=== PATIENT | female | born 1980 | race American Indian/Alaskan Native ===

== ENCOUNTER 2016-08-22 17:24 | Emergency (ER) | payer OTHER ==
--- NOTE | 2016-08-22 17:44 | Emergency Department Report ---
Chief Complaint: High BP Stated Complaint: HTN,LIGHTHEADNESS,PAIN IN LEGS Time Seen by Provider: 08/22/16 17:42 - HPI History of Present Illness: PT c/o feeling lightheaded since - ROS Review of Systems: + fatigue + htn - currently not being treated + hx of anemia, last cycle stopped - Exam Vital Signs: Vital Signs 08/22/16 17:36 Temperature 98.3 F Pulse Rate 83 Respiratory 18 Rate Blood Pressure 161/102 O2 Sat by Pulse 99 Oximetry MSE screening note: Focused history and physical exam performed. Due to findings the following was ordered: labs, ekg ED Disposition for MSE Condition: Stable
[2016-08-22 18:11] LABS: Basophils % (Auto) 1.1 % (0.0-1.8); Eosinophils % (Auto) 1.8 % (0.0-4.3); Hematocrit 36.1 % (30.3-42.9); Hemoglobin 11.8 gm/dl (10.1-14.3); Mean Corpuscular HGB Conc 33 % (30-34); Mean Corpuscular Volume 76 fl (79-97); Platelet Count 279 K/mm3 (140-440); Red Blood Count 4.73 M/mm3 (3.65-5.03); Red Cell Distribution Width 16.1 % (13.2-15.2); White Blood Count 7.6 K/mm3 (4.5-11.0)
[2016-08-22 18:12] LABS: Mean Corpuscular Hemoglobin 25 pg (28-32)
[2016-08-22 18:30] LABS: Alanine Aminotransferase 11 units/L (7-56); Albumin 3.5 g/dL (3.9-5); Albumin/Globulin Ratio 0.8 %; Alkaline Phosphatase 73 units/L (35-129); Anion Gap 19 mmol/L; Blood Urea Nitrogen 8 mg/dL (7-17); Calcium 8.7 mg/dL (8.4-10.2); Carbon Dioxide 24 mmol/L (22-30); Chloride 100.3 mmol/L (98-107); Glucose 102 mg/dL (65-100); Potassium 3.6 mmol/L (3.6-5.0); Sodium 140 mmol/L (137-145)
[2016-08-23] MEDS ORDERED: TYLENOL PO ONE (05:03)
[2016-08-23] MEDS ORDERED: TYLENOL ONE (05:03)
[2016-08-23 07:45] VITALS: BP 127/71
--- NOTE | 2016-08-23 08:27 | Emergency Department Report ---
HPI - General Chief Complaint: High BP Time Seen by Provider: 08/22/16 17:42 - HPI HPI: Room 25 The patient is a 36-year-old female presenting with a chief complaint of elevated blood pressure. The patient states she came to the emergency department for evaluation because she noticed blood pressure was elevated 5 days ago when she went to visit her neurologist. At the neurologist's office she was found to be 160/113. The patient was diagnosed with vertigo at the neurologist's office. The patient states yesterday at her [employer]'s office she felt to be hypertensive at 160/104. This prompted the patient to come to the ED for evaluation. The patient complained of aching pain in her left hip for the past 5 days. She denies any history of trauma or fever. The patient has been in the emergency department for over 14 hours when asked how she is feeling currently the patient denies any complaints. Location: [see above] Duration: [see above] Quality: Hypertension Severity: 160/113 Modifying factors: [see above] Context: [see above] Mode of transportation: [not driving] ED Past Medical Hx - Past Medical History Previous Medical History?: Yes Hx Hypertension: Yes (?) Additional medical history: Head injury while on a job - Surgical History Past Surgical History?: Yes Hx Cholecystectomy: Yes Hx Breast Surgery: Yes Additional Surgical History: Breast reduction - Family History Family history: no significant - Social History Smoking Status: Never Smoker Substance Use Type: None (denies illicit drug use), Prescribed - Medications Home Medications: Home Medications Medication Instructions Recorded Confirmed Last Taken Type Cyclobenzaprine [Flexeril 10 MG 10 mg PO TID PRN #20 tablet 10/03/14 Unknown Rx TAB] HYDROcodone/APAP 5-325 [[place] 2 each PO Q6HR PRN #20 tablet 10/03/14 Unknown Rx 5/325] ED Review of Systems ROS: Stated complaint: HTN,LIGHTHEADNESS,PAIN IN LEGS Other details as noted in HPI Comment: All other systems reviewed and negative Constitutional: denies: chills, fever Eyes: denies: eye pain, eye discharge, vision change ENT: denies: ear pain, throat pain Respiratory: denies: cough, shortness of breath, wheezing Cardiovascular: denies: chest pain, palpitations Endocrine: no symptoms reported Gastrointestinal: denies: abdominal pain, nausea, diarrhea Genitourinary: denies: urgency, dysuria, discharge Musculoskeletal: arthralgia Skin: denies: rash, lesions Neurological: denies: headache, weakness Psychiatric: denies: anxiety, depression Hematological/Lymphatic: denies: easy bleeding, easy bruising Physical Exam - Physical Exam Vital Signs: Vital Signs 08/22/16 08/23/16 08/23/16 17:36 00:48 04:56 Temperature 98.3 F 97.9 F 98.7 F Pulse Rate 83 63 89 Respiratory 18 18 18 Rate Blood Pressure 161/102 176/104 175/117 Blood Pressure [Right] O2 Sat by Pulse 99 100 100 Oximetry 08/23/16 08/23/16 08/23/16 05:05 06:44 06:51 Temperature Pulse Rate 56 L Respiratory 18 13 Rate Blood Pressure 136/86 Blood Pressure [Right] O2 Sat by Pulse 99 99 Oximetry 08/23/16 08/23/16 08/23/16 06:54 06:55 06:57 Temperature Pulse Rate 54 L 54 L Respiratory 18 18 Rate Blood Pressure Blood Pressure 136/86 [Right] O2 Sat by Pulse 99 99 Oximetry 08/23/16 08/23/16 08/23/16 07:00 07:15 07:30 Temperature Pulse Rate 62 69 68 Respiratory 18 16 17 Rate Blood Pressure 128/69 121/66 127/71 Blood Pressure [Right] O2 Sat by Pulse 99 96 99 Oximetry Physical Exam: GENERAL: The patient is well-developed well-nourished female lying on stretcher not appearing to be in acute distress. [] HEENT: Normocephalic. Atraumatic. Extraocular motions are intact. Patient has moist mucous membranes. NECK: Supple. No meningitic signs are noted. There is no adenopathy noted. CHEST/LUNGS: There is no respiratory distress noted. HEART/CARDIOVASCULAR: Regular. There is no tachycardia. There is no gallop rub or murmur. ABDOMEN: Abdomen is soft, nontender. Patient has normal bowel sounds. There is no abdominal distention. SKIN: There is no rash. There is no edema. There is no diaphoresis. NEURO: The patient is awake, alert, and oriented. The patient is cooperative. The patient has no focal neurologic deficits. The patient has normal speech. Cranial nerves II through XII grossly intact, no drift. Moves all extremities well MUSCULOSKELETAL: There is no evidence of acute injury. ED Course Vital Signs 08/22/16 08/23/16 08/23/16 17:36 00:48 04:56 Temperature 98.3 F 97.9 F 98.7 F Pulse Rate 83 63 89 Respiratory 18 18 18 Rate Blood Pressure 161/102 176/104 175/117 Blood Pressure [Right] O2 Sat by Pulse 99 100 100 Oximetry 08/23/16 08/23/16 08/23/16 05:05 06:44 06:51 Temperature Pulse Rate 56 L Respiratory 18 13 Rate Blood Pressure 136/86 Blood Pressure [Right] O2 Sat by Pulse 99 99 Oximetry 08/23/16 08/23/16 08/23/16 06:54 06:55 06:57 Temperature Pulse Rate 54 L 54 L Respiratory 18 18 Rate Blood Pressure Blood Pressure 136/86 [Right] O2 Sat by Pulse 99 99 Oximetry 08/23/16 08/23/16 08/23/16 07:00 07:15 07:30 Temperature Pulse Rate 62 69 68 Respiratory 18 16 17 Rate Blood Pressure 128/69 121/66 127/71 Blood Pressure [Right] O2 Sat by Pulse 99 96 99 Oximetry ED Medical Decision Making - Lab Data Result diagrams: 08/22/16 17:55 08/22/16 17:55 Laboratory Tests 08/22/16 08/22/16 08/22/16 17:55 17:55 17:55 WBC 7.6 RBC 4.73 Hgb 11.8 Hct 36.1 MCV 76 L MCH 25 L MCHC 33 RDW 16.1 H Plt Count 279 Lymph % (Auto) 35.6 H [place] % (Auto) 7.5 H Eos % (Auto) 1.8 Baso % (Auto) 1.1 Lymph # 2.7 [place] # 0.6 Eos # 0.1 Baso # 0.1 Seg Neutrophils % 54.0 Seg Neutrophils # 4.1 Sodium 140 Potassium 3.6 Chloride 100.3 Carbon Dioxide 24 Anion Gap 19 BUN 8 Creatinine 0.8 Estimated GFR > 60 BUN/Creatinine Ratio 10.00 Glucose 102 H Calcium 8.7 Total Bilirubin 0.30 AST 14 ALT 11 Alkaline Phosphatase 73 Troponin T < 0.010 Total Protein 8.0 Albumin 3.5 L Albumin/Globulin Ratio 0.8 HCG, Qual Negative - EKG Data -: EKG Interpreted by Vt EKG shows normal: sinus rhythm Rate: normal - EKG Data When compared to previous EKG there are: no significant change Interpretation: unchanged when compared t (10/03/2014) - Medical Decision Making Discussed with patient her normal blood pressure for last several measurements. Explained that blood pressure may be elevated during circumstances which include pain or stress. I explained that given her normal blood pressure at this time I do not recommend initiating antihypertensives for fear of making the patient hypotensive. The patient was advised to follow up with her primary physician for further evaluation - Differential Diagnosis hypertension, labile blood pressure, stress reaction Critical care attestation.: If time is entered above; I have spent that time in minutes in the direct care of this critically ill patient, excluding procedure time. ED Disposition Clinical Impression: Labile blood pressure Disposition: [id number] TO HOME OR SELFCARE Is pt being admited?: No Does the pt Need Aspirin: No Condition: Stable Instructions: Hypertension (ED) Additional Instructions: Return to the emergency department immediately should you develop worsening symptoms, fever, inability to tolerate food or liquid or any other concerns. Referrals: PRIMARY CARE, [Primary Care Provider] - [facility] Time of Disposition: 08:29
== END 2016-08-23 08:36 | disposition home or self-care (01) ==
LOC: ED 17:24
DX: I10 Essential (primary) hypertension (principal)
CPT/HCPCS: 36415; 80053; 84484; 84703; 85025; 93005; 93010